=== PATIENT | female | born 1985 | race Hispanic/Latino ===

== ENCOUNTER 2023-06-14 13:27 | Outpatient (CLI) | payer OTHER | END 2023-06-14 13:28 | disposition home or self-care (01) | LOC: CSHMAMMO 13:27 | PROVIDERS: ATTEND Family Medicine | DX: Z12.31 Encounter for screening mammogram for malignant neoplasm of breast (principal); Z80.3 Family history of malignant neoplasm of breast; Z98.82 Breast implant status | CPT/HCPCS: 77063; 77067 ==